=== PATIENT | female | born 1970 | race Caucasian/White ===

== ENCOUNTER 2020-03-30 17:01 | Emergency (ER) | payer OTHER, SELFPAY ==
[2020-03-30 17:12] VITALS: BP 190/91; PULSE 69; RESP 18; TEMP 36.6; O2SAT 96
--- NOTE | 2020-03-30 17:26 | DI.RAD.S_ITS ---
PROCEDURE: XR SHOULDER RT MIN 2V INDICATIONS: pain sp glf TECHNIQUE: 3 views of the shoulder were acquired. COMPARISON: None. FINDINGS: Bones: No fractures or dislocations. No suspicious bony lesions. Visualized ribs appear intact. Mild acromioclavicular joint osteoarthritis. Soft tissues: No suspicious soft tissue calcifications. IMPRESSION: No fracture. No acute osseous lesion. If symptoms and/or clinical suspicion for pathology persists, further assessment with repeat radiographs (7-10 days) or advanced imaging (e.g. CT, MRI or bone scan) should be considered. Dictated by: Padmini Bergeron MD, PhD on 03/30/2020 at 17:42 Approved by: Padmini Bergeron MD, PhD on 03/30/2020 at 17:43
[2020-03-30] MEDS: LIDOCAINE PATCH 1 EACH ADH..PATCH TOP (17:35)
[2020-03-30] MEDS: KETOROLAC 60 MG/2 ML VIAL 30 MG IM (17:35)
--- NOTE | 2020-03-30 18:25 | ED_ITS ---
HPI - Extremity Injury (Upper) <JANICE Nuñez - Last Filed: 03/30/20 19:04> General Chief Complaint: Extremity Injury, Upper Stated Complaint: Right shoulder//pain Time Seen by Provider: 03/30/20 17:15 Source: patient Mode of arrival: Ambulatory Limitations: no limitations History of Present Illness HPI narrative: The patient is a 49-year-old current THC user who presents by herself for chief complaint of right shoulder pain. She states that she has a right shoulder injury approximately 1 month ago while hiking [place] by [place] point. She states she was evaluated at another emergency department at that time, was told that she had a suspected rotator cuff injury to her right arm. She states that subsequently she and her partner have moved into an RV, and she tripped last night falling against the wall, with her right shoulder hitting the wall. She states that since then she has been in so much pain that she has had difficulty sleeping. She took 800 mg of ibuprofen this morning, otherwise has used THC and CBD oil. She denies any neck or back pain she states she did not hit her head, just hit her shoulder against the wall. 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 Related Data Previous Rx's Medication Instructions Recorded ketorolac 10 mg PO TID PRN #14 tab 03/30/20 lidocaine 1 patch TOPICAL DAILY PRN #15 ea 03/30/20 Allergies Allergy/AdvReac Type Severity Reaction Status Date / Time No Known Drug Allergies Allergy Verified 03/30/20 17:15 Review of Systems <JANICE Nuñez - Last Filed: 03/30/20 19:04> Review of Systems Narrative: GENERAL: Denies chills, fatigue, malaise, fever, sweats. HEENT: Denies sinus pain, ear pain, sore throat, difficulty swallowing, dizziness. RESPIRATORY: Denies dyspnea, cough, wheezing, hemoptysis, sputum. CARDIOVASCULAR: Denies chest pain, palpitations, orthopnea, edema, GASTROINTESTINAL: Denies nausea, vomiting, abdominal pain, diarrhea, constipation, melena. : Denies dysuria, frequency, incontinence, hematuria, urinary retention. MUSCULOSKELETAL: See HPI SKIN: Denies rash, skin lesions, or other NEUROLOGIC: Denies weakness, headache, numbness, change in speech, confusion, seizures, incoordination. PSYCHIATRIC: No concerning psychosocial issues. 12 point review of systems is negative except for those stated above Exam <JANICE Nuñez - Last Filed: 03/30/20 19:04> Narrative Exam Narrative: GENERAL: This is a well-nourished, well-developed patient, in no acute distress HEAD: Atraumatic. Normocephalic. No temporal or scalp tenderness. EYES: Pupils equal round and reactive. Extraocular motions intact. No scleral icterus. No injection or drainage. ENT: Nose without bleeding, purulent drainage or septal hematoma. Wearing a mask Airway patent. NECK: Trachea midline. No JVD or lymphadenopathy. Supple, nontender, no meningeal signs. CARDIOVASCULAR: Regular rate and rhythm EXTREMITIES: Generalized pain to palpation right shoulder, decreased range of motion all seals, negative empty can test, positive right radial pulse, good strength right hand. RESPIRATORY: No cough. No increased respiratory effort. No accessory muscle use BACK: Nontender without deformity or crepitance. No pain to CT or L-spine palpation No flank tenderness. NEURO: AOx3. SKIN: No rash or erythema on visible skin. No ecchymosis laceration or abrasion noted on right shoulder. Initial Vital Signs Initial Vital Signs: Vital Signs Temperature 97.9 F 03/30/20 17:12 Pulse Rate 69 03/30/20 17:12 Respiratory Rate 18 03/30/20 17:12 Blood Pressure 190/91 H 03/30/20 17:12 Pulse Oximetry 96 03/30/20 17:12 <Bg Duran DO - Last Filed: 03/30/20 19:16> Initial Vital Signs Initial Vital Signs: Vital Signs Temperature 97.9 F 03/30/20 17:12 Pulse Rate 69 03/30/20 17:12 Respiratory Rate 18 03/30/20 17:12 Blood Pressure 190/91 H 03/30/20 17:12 Pulse Oximetry 96 03/30/20 17:12 Scores <JANICE Nuñez - Last Filed: 03/30/20 19:04> GCS Marah coma scale eye opening: Spontaneous Meridian coma scale verbal response: Orientated Marah coma scale motor response: Obey commands Meridian coma scale total score: 15 Course <JANICE Nuñez - Last Filed: 12/09/20 19:04> Orders Ordered: ED Orders 03/30/20 17:26 XR shoulder RT min 2V Stat Discontinued Medications Ketorolac Tromethamine (Ketorolac 60 Mg/2 Ml Vial) 30 mg IM NOW ONE Stop: 03/30/20 17:26 Last Admin: 03/30/20 17:35 Dose: 30 mg Documented by: ANIA Lidocaine (Lidocaine Patch 1 Each Adh..Patch) 1 each TOP NOW ONE Stop: 03/30/20 17:28 Last Admin: 03/30/20 17:35 Dose: 1 each Documented by: ANIA Lidocaine (Remove Lidocaine Patch) 1 each TOP DAILY SUJEY Vital Signs Vital signs: Vital Signs - 8 hr 03/30/20 17:12 03/30/20 18:52 Temperature 97.9 F Pulse Rate 69 70 Respiratory Rate 18 16 Blood Pressure 190/91 H 138/78 Pulse Oximetry 96 97 <Bg Duran DO - Last Filed: 03/30/20 19:16> Orders Ordered: ED Orders 03/30/20 17:26 XR shoulder RT min 2V Stat Discontinued Medications Ketorolac Tromethamine (Ketorolac 60 Mg/2 Ml Vial) 30 mg IM NOW ONE Stop: 03/30/20 17:26 Last Admin: 03/30/20 17:35 Dose: 30 mg Documented by: ANIA Lidocaine (Lidocaine Patch 1 Each Adh..Patch) 1 each TOP NOW ONE Stop: 03/30/20 17:28 Last Admin: 03/30/20 17:35 Dose: 1 each Documented by: ANIA Lidocaine (Remove Lidocaine Patch) 1 each TOP DAILY [facility] Vital Signs Vital signs: Vital Signs - 8 hr 03/30/20 17:12 03/30/20 18:52 Temperature 97.9 F Pulse Rate 69 70 Respiratory Rate 18 16 Blood Pressure 190/91 H 138/78 Pulse Oximetry 96 97 MDM - Extremity Injury (Upper) <JANICE Nuñez - Last Filed: 03/30/20 19:04> Imaging Data Extremity x-ray #1: Radiologist's Impression: [address] [place] [id number] ReportSigned Patient: Santhosh Ennis#: [id number]: 1970Acct:[id number]/Sex: 49 / FDate of Service: 03/30/20Loc: EDAccession Number: [id number] Procedure: XR shoulder RT min 2V Ordering Provider: Ondina FloresBC PROCEDURE: XR SHOULDER RT MIN 2V INDICATIONS: pain sp glf TECHNIQUE: 3 views of the shoulder were acquired. COMPARISON: None. FINDINGS: Bones: No fractures or dislocations. No suspicious bony lesions. Visualized ribs appear intact. Mild acromioclavicular joint osteoarthritis. Soft tissues: No suspicious soft tissue calcifications. IMPRESSION: No fracture. No acute osseous lesion. If symptoms and/or clinical suspicion for pathology persists, further assessment with repeat radiographs (7-10 days) or advanced imaging (e.g. CT, MRI or bone scan) should be considered. Dictated by: Padmini Bergeron MD, PhD on 03/30/2020 at 17:42 Approved by: Padmini Bergeron MD, PhD on 03/30/2020 at 17:43 [facility] Narrative Medical decision making narrative: The patient is a 49-year-old female who presents with a chief complaint of right shoulder pain after falling into a wall last night. X-ray is no acute findings. She is neurovascularly intact, though has reduced range of motion all seals. Neurovascularly intact throughout her stay in the ER. I suspect this is likely due to her previous reported likely rotator cuff injury. She was given Toradol and lidocaine patch to the emergency department felt much relief, able to fall sleep. Prescriptions provided. Discussed not taking ketorolac with any other NSAIDs as well as follow-up with primary care provider as she may benefit from physical therapy or follow-up care. Discussed going back to ER for acute concerns. Discussed not using sling to help prevent frozen shoulder. Patient has no questions or concerns upon discharge and states understanding return precautions as well as follow-up care. Discharge Plan Departure Patient Disposition: Home Clinical Impression: Right shoulder pain Qualifiers: Chronicity: acute Qualified Code(s): M25.511 - Pain in right shoulder Instructions: How To Perform RICE (Rest, Ice, Compress, Elevate), DI for Shoulder Pain Activity Restrictions/Additional Instructions: Thank you for trusting us with your care today As I discussed, your x-ray shows no acute fracture. This does not rule out a soft tissue injury such as a ligament or tendon injury. It is important that you follow up with primary care provider, especially if worsening or no improvement. There can be fractures that did not show up on initial x-ray. I have given you a prescription of ketorolac Toradol. This is an NSAID. Do not combine it with other NSAIDs such as Aleve or ibuprofen. I suggest taking it with some food, as it can irritate your stomach. I sent these prescriptions to [facility]. Please use rest ice compression elevation. Please avoid use of a sling as this can lead to frozen shoulder. Please come back to emergency department for any acute concerns. Such as concern of heart attack stroke etcetera Please follow-up with primary care provider. I have given you contact information to the [facility] career resource technician, who can help you identify new primary care provider in the area. Prescriptions: New lidocaine 5 % adhesive patch,medicated 1 patch topical DAILY PRN (Reason: pain) Qty: 15 RF: 0 ketorolac 10 mg tablet 10 mg PO TID PRN (Reason: pain) Qty: 14 RF: 0 Referrals: [facility] [Outside] Stand Alone Forms: Work Release Note <Bg Duran, DO - Last Filed: 03/30/20 19:16> Cosign ED Attending Cosignature Attestation: Dr Duran Co-Sign Statement: I was available for consultation during this patient's emergency department visit. This chart is signed by myself for administrative purposes only. I did not have direct contact with this patient during this visit. They were seen in dependently by the APC.
[2020-03-30 18:52] VITALS: BP 138/78; PULSE 70; RESP 16; O2SAT 97
== END 2020-03-30 18:53 | disposition home or self-care (01) ==
PROVIDERS: Emergency Provider Nurse Practitioner Family
DX: M25.511 Pain in right shoulder (principal); W19.XXXA Unspecified fall, initial encounter; F12.90 Cannabis use, unspecified, uncomplicated
CPT/HCPCS: 73030; 96372; 99283; J1885

== ENCOUNTER → 2020-04-05 11:33 | Outpatient (CLI) | payer OTHER, SELFPAY ==
--- NOTE | 2020-04-05 11:37 | DI.RAD.S_ITS ---
PROCEDURE: XR FOREARM RT 2V INDICATIONS: left hand pain TECHNIQUE: 2 views of the forearm were acquired. COMPARISON: None. FINDINGS: Bones: No fractures or dislocations. No suspicious bony lesions. Soft tissues: No suspicious soft tissue calcifications or masses. IMPRESSION: No fracture Dictated by: Felix Santillan M.D. on 04/05/2020 at 12:44 Approved by: Felix Santillan M.D. on 04/05/2020 at 12:45
--- NOTE | 2020-04-05 11:37 | DI.RAD.S_ITS ---
PROCEDURE: XR HAND LT MIN 3V INDICATIONS: left hand pain TECHNIQUE: 3 views of the hand(s) acquired. COMPARISON: None. FINDINGS: Bones: No fractures or dislocations. Carpal bones are normally aligned. No suspicious bony lesions. 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 Soft tissues: No suspicious soft tissue calcifications. IMPRESSION: Degenerative changes. No fracture. If the patient's pain or other symptoms persist, consider further evaluation with MRI Dictated by: Felix Santillan M.D. on 04/05/2020 at 12:45 Approved by: Felix Santillan M.D. on 04/05/2020 at 12:47
[2020-04-05 12:10] LABS: Add Manual Diff / Slide Review NO; Basophils Absolute Auto 0 /uL (0-100); Basophils Percent Auto 0.7 % (0-2); Eosinophils Absolute Auto 100 /uL (0-450); Eosinophils Percent Auto 1.5 % (2-4); Hematocrit 38.3 % (36-46); Hemoglobin 12.3 g/dL (12.0-16.0); Lymphocytes Absolute Auto 1600 /uL (1100-4500); Lymphocytes Percent Auto 23.4 % (25-40); Mean Corpuscular HGB Conc 32.1 % (30-36); Mean Corpuscular Hemoglobin 28.9 PG (26-34); Monocytes Absolute Auto 400 /uL (0-900); Monocytes Percent Auto 6.6 % (3-14); Neutrophils Absolute Auto 4500 /uL (1500-7000); Neutrophils Percent Auto 67.8 % (50-75); Platelet Count 245 X10^3/uL (150-400); Red Blood Cell Count 4.26 X10^6/uL (4.0-5.2); Red Cell Distribution Width 14.7 % (11.6-14.8); White Blood Cell Count 6.7 X10^3/uL (4.5-11.0)
[2020-04-05 12:30] LABS: Alanine Aminotransferase 16 IU/L (<35); Albumin 4.3 g/dL (3.5-5.0); Albumin Globulin Ratio 1.6 (1.0-2.8); Alkaline Phosphatase 58 U/L (38-126); Aspartate Aminotransferase 24 IU/L (14-36); BUN Creatinine Ratio 17.8 (6-22); Bilirubin Total 0.4 mg/dL (0.2-1.3); Blood Urea Nitrogen 13 mg/dL (7-17); Calcium 9.6 mg/dL (8.4-10.2); Carbon Dioxide 30 mmol/L (22-32); Chloride 102 mmol/L (98-107); Estimated Glomerular Filt Rate > 60.0 mL/min (>60); Globulin 2.7 g/dL (1.7-4.1); Glucose 104 mg/dL (70-100); HEMOLYSIS < 15 (0-50); Potassium 4.3 mmol/L (3.4-5.1); Sodium 136 mmol/L (137-145)
[2020-04-05 12:47] LABS: Free T4, Direct Thyroxine 1.09 ng/dL (0.78-2.19)
[2020-04-05 13:01] LABS: Thyroid Stimulating Hormone 0.639 uIU/mL (0.47-4.68)
== END ==
PROVIDERS: PCP Registered Nurse; Referring Provider Registered Nurse; Visit Provider Registered Nurse
DX: M79.642 Pain in left hand (principal); M79.632 Pain in left forearm; E03.9 Hypothyroidism, unspecified; F32.9 Major depressive disorder, single episode, unspecified; Z79.899 Other long term (current) drug therapy
CPT/HCPCS: 36415; 73090; 73130; 80053; 84439; 84443; 85025

== ENCOUNTER → 2020-07-21 10:21 | Outpatient (CLI) | payer OTHER, MEDICAID, SELFPAY ==
[2020-07-21] MEDS: COVID-19 VACC #1, MRNA(MOD) 100 MCG/0.5 ML VIAL IM (10:31)
== END ==
PROVIDERS: PCP Registered Nurse; Visit Provider Internal Medicine
DX: Z23 Encounter for immunization (principal)
CPT/HCPCS: 0011A; 91301

== ENCOUNTER → 2020-08-19 10:13 | Outpatient (CLI) | payer OTHER, MEDICAID, SELFPAY ==
[2020-08-19] MEDS: COVID-19 VACC #2, MRNA(MOD) 100 MCG/0.5 ML VIAL IM (10:27)
== END ==
PROVIDERS: PCP Registered Nurse; Visit Provider Internal Medicine
DX: Z23 Encounter for immunization (principal)
CPT/HCPCS: 0012A; 91301

== ENCOUNTER 2020-12-04 20:18 | Emergency (ER) | payer OTHER, SELFPAY ==
[2020-12-04 20:23] VITALS: BP 163/75; PULSE 82; RESP 17; TEMP 36.7; O2SAT 100; BMI 37.8
--- NOTE | 2020-12-04 20:27 | DI.RAD.S_ITS ---
PROCEDURE: XR KNEE RT 3V INDICATIONS: knee injury TECHNIQUE: 3 views of the knee were acquired. COMPARISON: None. FINDINGS: Bones: No fractures or dislocations. No suspicious bony lesions. Soft tissues: Small joint effusion. IMPRESSION: Small joint effusion. If the patient's pain or other symptoms persist, consider further evaluation with MRI Dictated by: Felix Santillan M.D. on 12/04/2020 at 21:37 Approved by: Felix Santillan M.D. on 12/04/2020 at 21:37
[2020-12-04] MEDS: HYDROMORPHONE 1 MG INJ IM (20:40)
--- NOTE | 2020-12-04 20:51 | ED_ITS ---
HPI - Extremity Injury (Lower) General Chief Complaint: Extremity Injury, Lower Stated Complaint: RIGHT LEG AND ANKLE INJURY Time Seen by Provider: 12/04/20 20:36 Source: patient Mode of arrival: Wheelchair Limitations: no limitations History of Present Illness HPI Narrative: Patient is a 49-year-old female who presents with right knee pain. 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 She was able to finish her shift last 30 minutes and drove herself home. However the longer she has not moved it the more intense pain she has. No other injury. No numbness tingling or weakness. She has not taken anything for pain. She denies any numbness or tingling. She now is unable to weightbear. Related Data Home Medications Medication Instructions Recorded Confirmed azelastine-fluticasone 137 mcg-50 1 spray INTRANASAL BID 04/05/20 04/05/20 mcg/spray nasal spray (Dymista) cetirizine 10 mg tablet (Zyrtec) 10 mg PO DAILY 04/05/20 04/05/20 cholecalciferol (vitamin D3) 50 50 mcg PO DAILY 04/05/20 04/05/20 mcg (2,000 unit) capsule fluoxetine 20 mg capsule (Prozac) 60 mg PO DAILY cap 04/05/20 04/05/20 gabapentin 300 mg capsule 300 mg PO BEDTIME 04/05/20 04/05/20 lamotrigine 100 mg tablet 200 mg PO DAILY tab 04/05/20 04/05/20 levothyroxine 100 mcg tablet 100 mcg PO DAILY 04/05/20 04/05/20 trazodone 50 mg tablet 50 mg PO BEDTIME PRN 04/05/20 04/05/20 Previous Rx's Medication Instructions Recorded ketorolac 10 mg tablet 10 mg PO TID PRN #14 tab 03/30/20 lidocaine 5 % topical patch 1 patch TOPICAL DAILY PRN #15 ea 03/30/20 menthol 10 % topical gel 1 applic TOPICAL BID-QID PRN #70.8 04/09/20 (Aspercreme Heat) g hydrocodone 5 mg-acetaminophen 325 1 tab PO Q6H PRN #10 tab 12/04/20 mg tablet Allergies Allergy/AdvReac Type Severity Reaction Status Date / Time No Known Drug Allergies Allergy Verified 12/04/20 20:28 Review of Systems Review of Systems Narrative: GENERAL: Denies chills,fever HEENT: Denies throat pain RESPIRATORY: Denies dyspnea, cough, wheezing CARDIOVASCULAR: Denies chest pain, palpitations GASTROINTESTINAL: Denies nausea, vomiting MUSCULOSKELETAL: See HPI SKIN: No rash, no laceration, no pruritus NEUROLOGIC: Denies weakness, dizziness, headache, numbness 8 point review of systems is negative except for those stated above and HPI Patient History Medical History (Updated 12/04/20 @ 22:01 by Fatemeh Plasencia DO) ADHD Allergies Carpal tunnel syndrome (~2004) Chicken pox Chronic back pain Fractures (~2018) Hearing loss Lumbar spine pain (~1989) PTSD (post-traumatic stress disorder) (~2014) Shoulder pain (~2019) Surgical History (Updated 06/23/20 @ 21:10 by Shirin Mcneil) Anesthesia History of carpal tunnel release History of endometrial ablation History of foot surgery History of thyroid surgery Family History (Updated 06/23/20 @ 21:12 by Shirin Mcneil) Father Hypertension Hyperlipidemia Mother Mental health problem Grandfather Mental health problem Hypertension Hyperlipidemia Grandmother Cancer Mental health problem Hypertension Hyperlipidemia Grandfather Congestive heart failure Hypertension Hyperlipidemia Grandmother Congestive heart failure Hypertension Hyperlipidemia Social History Smoking Status: Current every day smoker Smoking Status: Current every day smoker alcohol intake frequency: holidays/special occasions only Substance Use Type: does not use Exam Initial Vital Signs Initial Vital Signs: Vital Signs Temperature 98.1 F 12/04/20 20:23 Pulse Rate 82 12/04/20 20:23 Respiratory Rate 17 12/04/20 20:23 Blood Pressure 163/75 H 12/04/20 20:23 Pulse Oximetry 100 12/04/20 20:23 GENERAL: Alert 41-year-old female appears in and in no acute distress. HEENT: Head atraumatic,EOMI, pupils reactive, face symmetric, moist mucous membranes CARDIOVASCULAR: Regular rate and rhythm without murmurs, rubs or gallops. RESPIRATORY: Breath sounds equal bilaterally, no wheezes rales or rhonchi. EXTREMITIES: Normal range of motion, no clubbing or edema. Neurovascularly intact Right lower extremity no obvious bony deformity no swelling no erythema distal pedal pulse intact able to move toes NEUROLOGICAL: Alert and oriented x4. SKIN: Warm, dry, no laceration, no petechiae, no rashes or lesions. Course Orders Ordered: ED Orders 12/04/20 20:27 XR knee RT 3V Stat Discontinued Medications Hydrocodone Bitart/Acetaminophen (Hydrocodone/Acet 5/325 Prepack) 1 bottle MISC SEEINSTR ONE Stop: 12/04/20 22:07 Last Admin: 12/04/20 22:10 Dose: 1 bottle Documented by: CHEYENNE Hydromorphone HCl (Hydromorphone 1 Mg Inj) 1 mg IM NOW ONE Stop: 12/04/20 20:37 Last Admin: 12/04/20 20:40 Dose: 1 mg Documented by: CHEYENNE Vital Signs Vital signs: Vital Signs - 8 hr 12/04/20 22:19 Pulse Rate 78 Blood Pressure 134/88 Pulse Oximetry 100 MDM - Extremity Injury (Lower) Imaging Data Extremity x-ray #1: Radiologist's Impression: PROCEDURE: XR KNEE RT 3V INDICATIONS: knee injury TECHNIQUE: 3 views of the knee were acquired. COMPARISON: None. FINDINGS: Bones: No fractures or dislocations. No suspicious bony lesions. Soft tissues: Small joint effusion. IMPRESSION: Small joint effusion. If the patient's pain or other symptoms persist, consider further evaluation with MRI Dictated by: Felix Santillan M.D. on 12/04/2020 at 21:37 Approved by: Felix Santillan M.D. on 12/04/2020 at 21:3 MDM Narrative Medical decision making narrative: No evidence of fracture. Patient placed in knee immobilizer given crutches and instructions on close follow-up and when to return to ED. Discharge Plan Departure Patient Disposition: Home Clinical Impression: Right knee sprain Qualifiers: Encounter type: initial encounter Instructions: DI for Knee Sprain Activity Restrictions/Additional Instructions: HAPPY BIRTHDAY!! YOU ARE NOT 51.....yet *You have been diagnosed with right knee sprain *What to do: For knee immobilizer while active use crutches. Weight bear as tolerated. Elevate and ice. If still having pain in a few weeks he may require outpatient MRI. It is important he follow up with her primary care provider. *Continue to take medications as directed Ibuprofen 800 mg every 8 hours if needed for [id number] [place] 1 tablet every 6 hours if needed for severe pain--> SENT TO [facility] *Follow up with your primary care provider in 2-3 days *Return to ER if you should have increasing pain, swelling weakness, numbness or any new, worsening or concerning symptoms CONTROLLED SUBSTANCE DISCHARGE (Narcotoic/benzodiazepine/Flexeril/Phenergan) 1. You have been prescribed narcotic medications, it does have acetaminophen/Tylenol/paracetamol in it, DO NOT TAKE MORE THAN 4,00mg in 24 hours of Tylenol. TRAMADOL DOES NOT CONTAIN TYLENOL 2. Please understand that we cannot provide further refills of narcotics, benzodiazepines or controlled substances through the ED and her pain management will need to be through your provider. 3. While on these medications you cannot drive or operate heavy machinery. 4. You cannot sign legal documents or perform any duties such as this. 5. As long as you're taking opiate pain medications he should also be taking a stool softener such as Colace, Dulcolax, MiraLAX or prune juice, to help avoid constipation. Prescriptions: New hydrocodone-acetaminophen 5-325 mg tablet 1 tab PO Q6H PRN (Reason: pain) Qty: 10 RF: 0 No Action Aspercreme Heat 10 % gel 1 applic topical BID-QID PRN (Reason: muscle pain) Qty: 70.8 RF: 0 levothyroxine 100 mcg tablet 100 mcg PO DAILY RF: 0 fluoxetine [Prozac] 20 mg capsule 60 mg PO DAILY RF: 0 gabapentin 300 mg capsule 300 mg PO BEDTIME RF: 0 lamotrigine 100 mg tablet 200 mg PO DAILY RF: 0 trazodone 50 mg tablet 50 mg PO BEDTIME PRNRF: 0 cholecalciferol (vitamin D3) 50 mcg (2,000 unit) capsule 50 mcg PO DAILY RF: 0 azelastine-fluticasone [Dymista] 137-50 mcg/spray spray,non-aerosol 1 spray intranasal BID RF: 0 cetirizine [Zyrtec] 10 mg tablet 10 mg PO DAILY RF: 0 lidocaine 5 % adhesive patch,medicated 1 patch topical DAILY PRN (Reason: pain) Qty: 15 RF: 0 ketorolac 10 mg tablet 10 mg PO TID PRN (Reason: pain) Qty: 14 RF: 0 Referrals: [facility], [facility] ATTENDANT [Primary Care Provider] - Stand Alone Forms: Work Release Note
[2020-12-04] MEDS: HYDROCODONE/ACET 5/325 PREPACK 1 BOTTLE MISC (22:10)
[2020-12-04 22:19] VITALS: BP 134/88; PULSE 78; O2SAT 100
== END 2020-12-04 22:30 | disposition home or self-care (01) ==
PROVIDERS: Emergency Provider Emergency Medicine; PCP Registered Nurse
DX: S83.91XA Sprain of unspecified site of right knee, initial encounter (principal); X50.0XXA Overexertion from strenuous movement or load, initial encounter; Y99.0 Civilian activity done for income or pay
CPT/HCPCS: 73562; 96372; 99283; J1170

== ENCOUNTER → 2020-12-22 19:02 | Outpatient (CLI) | payer OTHER, SELFPAY ==
--- NOTE | 2020-12-22 | DI.MRI.S_ITS ---
PROCEDURE: MR KNEE RT WO CON INDICATIONS: Unspecified internal derangement of right knee TECHNIQUE: Noncontrast sagittal PD fast spin echo and T2 fast spin echo with fat saturation, sagittal 3-D FLASH with fat saturation; coronal T1 spin echo and PD fast spin echo with fat saturation, and axial PD fast spin echo with fat saturation through the knee. COMPARISON: None. FINDINGS: Menisci: Medial meniscus: Intact. Lateral meniscus: Intact. Cruciate ligaments: Anterior cruciate ligament: Not seen, in keeping with rupture. Posterior cruciate ligament: Intact. Medial structures: The medial collateral ligament: Intact. Semimembranosus tendon: Intact. Visualized pes anserinus tendons: Intact. Bursal fluid: none. Lateral structures: The lateral collateral ligament intact. Biceps femoris tendon appears intact. Popliteus tendon grossly unremarkable. Iliotibial band appears intact. Anterior structures: Quadriceps tendon: Intact. Medial patellofemoral ligament: Intact. Lateral patellofemoral ligament: Intact. Patellar tendon: Minimal tendinopathy. Anterior soft tissues: Unremarkable. Deep infrapatellar region: Normal. Bones and cartilage: Marrow: Nondisplaced subcortical fracture measuring approximately 1 cm seen at the posterior aspect of the lateral tibial plateau. No definite articular surface depression. There is associated acute marrow edema/contusion. Medial compartment: Minimal surface fraying of the central weight-bearing femoral and tibial cartilage. Lateral compartment: Intrasubstance signal changes involving the central weight-bearing tibial cartilage. No focal defect. Patellofemoral compartment: Surface fraying partial-thickness fissuring of the cartilage overlying the lateral patellar facet and the central femoral trochlea. There is mild underlying subchondral marrow edema. Joint space: Effusion: No pathologic knee joint effusion. Popliteal fossa: Small Edouard's cyst which may be partially ruptured measuring approximately 2 cm in the cephalocaudal dimension. Loose bodies: None. IMPRESSION: Acute versus subacute subcortical fracture involving the posterolateral tibial plateau. No definite articular surface depression. Rupture of the anterior cruciate ligament although technically age indeterminate and may be chronic. Mild degenerative joint disease as above. Small Edouard's cyst which may be partially ruptured. Dictated by: Felix Santillan M.D. on 12/23/2020 at 8:04 Approved by: Felix Santillan M.D. on 12/23/2020 at 8:12
== END ==
PROVIDERS: PCP Registered Nurse; Referring Provider Orthopaedic Surgery; Visit Provider Orthopaedic Surgery
DX: S82.144A Nondisplaced bicondylar fracture of right tibia, initial encounter for closed fracture (principal); S83.511A Sprain of anterior cruciate ligament of right knee, initial encounter; M17.11 Unilateral primary osteoarthritis, right knee; M71.21 Synovial cyst of popliteal space [Baker], right knee; X58.XXXA Exposure to other specified factors, initial encounter
CPT/HCPCS: 73721

== ENCOUNTER → 2021-03-29 07:03 | Outpatient (CLI) | payer OTHER, MEDICAID, SELFPAY ==
[2021-03-29 08:59] LABS: Alanine Aminotransferase 13 IU/L (<35); Albumin 4.5 g/dL (3.5-5.0); Albumin Globulin Ratio 1.6 (1.0-2.8); Alkaline Phosphatase 59 U/L (38-126); Aspartate Aminotransferase 21 IU/L (14-36); BUN Creatinine Ratio 17.8 (6-22); Bilirubin Total 0.4 mg/dL (0.2-1.3); Blood Urea Nitrogen 13 mg/dL (7-17); Calcium 9.4 mg/dL (8.4-10.2); Carbon Dioxide 26 mmol/L (22-32); Chloride 104 mmol/L (98-107); Cholesterol 256 mg/dL (140-199); Estimated Glomerular Filt Rate > 60.0 mL/min (>60); Globulin 2.9 g/dL (1.7-4.1); Glucose 91 mg/dL (70-100); HDL Cholesterol 33 mg/dL (40-60); HEMOLYSIS < 15 (0-50); LDL Cholesterol Calculated 195 mg/dL (<100); Potassium 3.9 mmol/L (3.4-5.1); Sodium 140 mmol/L (137-145); Total Protein 7.4 g/dL (6.3-8.2); Triglycerides 140 mg/dL (35-150)
[2021-03-29 09:28] LABS: Thyroid Stimulating Hormone 0.979 uIU/mL (0.47-4.68)
[2021-03-31 16:52] LABS: Lamotrigine Lamictal 4.1 ug/mL (2.0-20.0)
== END ==
PROVIDERS: PCP Registered Nurse; Referring Provider Registered Nurse; Visit Provider Registered Nurse
DX: E03.9 Hypothyroidism, unspecified (principal); F31.30 Bipolar disorder, current episode depressed, mild or moderate severity, unspecified; I10 Essential (primary) hypertension
CPT/HCPCS: 36415; 80053; 80061; 80175; 84443

== ENCOUNTER → 2021-12-01 11:47 | Outpatient (CLI) | payer OTHER, SELFPAY ==
--- NOTE | 2021-12-01 | DI.MRI.S_ITS ---
PROCEDURE: MR KNEE RT WO CON INDICATIONS: sprain of anterior cruciate ligament of right knee TECHNIQUE: Noncontrast sagittal PD fast spin echo and T2 fast spin echo with fat saturation, sagittal 3-D FLASH with fat saturation; coronal T1 spin echo and PD fast spin echo with fat saturation, and axial PD fast spin echo with fat saturation through the knee. COMPARISON: [facility], MR, MR KNEE RT WO CON, 12/22/2020, 19:14. FINDINGS: Image quality: Excellent. Menisci: Mild intrasubstance degeneration of the posterior horn of the medial meniscus. Medial medial and lateral menisci are intact. The meniscal root ligaments appear intact. Cruciate ligaments: Patient is status post anterior cruciate ligament reconstruction. The tendon graft appears intact, with expected signal changes from ligamentization. No partial or full-thickness graft tears. No posterior bowing of the graft to suggest roof impingement. Femoral and tibial tunnels are in expected positions, without widening or tunnel cysts. The posterior cruciate ligament appears intact. Medial structures: The medial collateral ligament appears intact. The semimembranosus tendon insertions and meniscocapsular junction appear intact. Visualized portions of the pes anserinus tendons appear intact. No abnormal bursal fluid. Lateral structures: The lateral collateral ligament and the biceps femoris tendon appear intact. The popliteus tendon appears normal. Iliotibial band appears normal, without findings to suggest friction syndrome. Anterior structures: The quadriceps and patellar tendons appear intact. Patellar alignment is normal. No femoral trochlear dysplasia or ventral trochlear prominence. No edema in the infrapatellar fat pad. No localized arthrofibrosis (cyclops lesion) in the anterior intercondylar notch. Bones and cartilage: Sagittal images demonstrate no abnormal anterior tibial translation. 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 There is mild marrow edema in the medial femoral condyle and medial tibial plateau, most likely reactive. There is a defect in the anterior aspect of patella, likely related to BPTB autograft harvesting. Joint space: There is small knee joint effusion. There is a small Edouard's cyst. No intra-articular bodies. Normal appearing synovial plicae are incidentally noted. IMPRESSION: 1. Postsurgical changes related to ACL reconstruction. The ACL graft appears intact. 2. Mild intrasubstance degeneration of the posterior horn of the medial meniscus. 3. 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 There is reactive edema in the medial femoral condyle and medial tibial plateau. 4. Small Edouard's cyst. 5. Small knee joint effusion.. Dictated by: Hussain Mendoza M.D. on 12/01/2021 at 13:16 Approved by: Hussain Mendoza M.D. on 12/01/2021 at 13:36
== END ==
PROVIDERS: PCP Physician Assistant; Referring Provider Orthopaedic Surgery; Visit Provider Orthopaedic Surgery
DX: S83.511A Sprain of anterior cruciate ligament of right knee, initial encounter (principal); M71.21 Synovial cyst of popliteal space [Baker], right knee; M25.461 Effusion, right knee; Z98.890 Other specified postprocedural states
CPT/HCPCS: 73721